=== PATIENT | female | born 1955 | race Caucasian/White ===

== ENCOUNTER → 2017-09-29 14:22 | Outpatient (CLI) | payer BC ==
[2017-09-29 15:06] LABS: BASOPHILS 0.3 % (0-2); EOSINOPHILS 2.6 % (0-7); HEMATOCRIT 39.7 % (36.0-48.0); HEMOGLOBIN 13.2 g/dL (12-16); LYMPHOCYTES 25.9 % (15-50); MCH 31.6 pg (26.0-34.0); MCHC 33.2 g/dL (31.0-37.0); MEAN PLATELET VOLUME 9.7 fL (7.4-10.4); NEUTROPHILS 66.2 % (40-80); PLATELET COUNT 243 10x3/uL (130-400); RBC 4.18 10x6/uL (4.00-5.40); RDW 12.3 % (11.5-14.5); WBC 6.2 10x3/uL (4.8-10.8)
[2017-09-29 16:07] LABS: ERYTHROCYTE SEDIMENTATION RATE 48 mm/hr (0-30)
== END | disposition home or self-care (01) ==
LOC: D.LAB 14:15 → D.CT 14:30
PROVIDERS: Internal Medicine Gastroenterology
DX: R10.9 Unspecified abdominal pain (principal); Z87.19 Personal history of other diseases of the digestive system

== ENCOUNTER 2018-05-12 07:15 | Day surgery (SDC) | payer BC ==
[2018-05-10 16:07] LABS: HEMATOCRIT 37.4 % (36.0-48.0); HEMOGLOBIN 12.5 g/dL (12-16); MCH 30.9 pg (26.0-34.0); MCHC 33.4 g/dL (31.0-37.0); MCV 92.3 fL (80.0-100.0); MEAN PLATELET VOLUME 8.9 fL (7.4-10.4); RBC 4.05 10x6/uL (4.00-5.40); RDW 12.8 % (11.5-14.5); WBC 7.6 10x3/uL (4.8-10.8)
[~2018-05-12] VITALS: Ht 160 cm; Wt 93.2 kg
--- NOTE | ~2018-05-12 | OP ---
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 PROCEDURE: EGD with removal of esophageal leukoplakia at 32 cm. Esophageal leukoplakia can be a premalignant process. Epinephrine injection. Multiple biopsies. Ablation of the tissues with the argon plasma [employer] baggage porter utilizing the esophageal setting in the forced mode. SURGEON: Bakari Denson MD TOOL AND DIE TECHNICIAN: None. BLOOD LOSS: Minimal. ANESTHESIA: General. COMPLICATIONS: None. The risks, possible complications, and alternatives to procedure were explained to the patient. She elects to proceed. OPERATIVE COURSE: The patient was conveyed to the operating room electively on the 05/12/2018. General anesthesia was induced by the anesthesia staff. A bite block was inserted. A gastroscope was inserted into the mouth. It was advanced easily into the hypopharynx. The esophagus was easily intubated as were the stomach and duodenum. Upon withdrawal, retroflexed and angulus views were obtained. I then withdrew into the esophagus. I advanced a sclerotherapy needle. A submucosal injection of epinephrine was performed. This is to help prevent post-procedure bleeding. Multiple biopsies were obtained in the area of the esophageal leukoplakia. This essentially removed all of the leukoplakia that I could identify. I then ablated this ulcerated area with the argon plasma [employer] baggage porter utilizing the esophageal setting in the forced mode. There was no evidence of full thickness esophageal injury. The endoscope was then withdrawn under direct vision. TRANSINT:[id number] Voice Confirmation ID: [id number] DOCUMENT ID: [id number] BAKARI DENSON MD at 1612 CC: DYLLAN MYERS MD, SALENA GOMEZ MD and CONNER VILLALOBOS [id number] DICTATION DATE: 05/13/18 1537 REGIONAL PRODUCTION MANAGER: 05/13/18 1643 [facility] 05/12/18 [facility] [address] [id number]
[~2018-05-12 07:15] MED LIST: ASPIRIN EC81 M1 PO; CALCIUM 500 + D1 TAB PO; COZAAR50 MG PO; FLUTICASONE PRO16 GM NASAL; MULTIPLE VITAMI1 TA1 PO; NEXIUM20 MG PO; PROBIOTIC BLEN1 EACH PO; ZANTAC150 MG PO; ZYRTEC10 MG PO
[2018-05-12 07:47] VITALS: BP 133/72; Ht 160 cm; Wt 93.2 kg
== END 2018-05-12 11:45 | disposition home or self-care (01) ==
LOC: D.OPS 07:15 → D.PAN 08:00 → D.OPS 09:30 → D.PAN 09:35 → D.OPS 09:35
PROVIDERS: Anesthesiology
DX: K22.8 Other specified diseases of esophagus (principal); I10 Essential (primary) hypertension; K21.9 Gastro-esophageal reflux disease without esophagitis; Z01.812 Encounter for preprocedural laboratory examination